=== PATIENT | female | born 1950 | race Caucasian/White ===

== ENCOUNTER 2019-04-02 13:28 | Observation (INO) ==
[2019-04-02 14:51] LABS: Basophils # 0.1 10*3/uL (0.0-0.2); Basophils % 0.9 % (0.0-0.8); Eosinophils # 0.2 10*3/uL (0.0-0.87); Eosinophils % 2.4 % (0.00-10.9); Hematocrit 34.6 VOL% (35.7-47.0); Hemoglobin 11.5 GM/DL (12.0-16.0); Immature Granulocytes % 0.4 %; Immature Granulocytes Absolute 0.03 #; Lymphocytes # 2.3 10*3/uL (1.4-4.0); Lymphocytes % 28.8 % (21.3-54.2); Mean Corpuscular HGB Conc 33.2 GM/DL (32-36); Mean Corpuscular Volume 88.9 FL (87-102); Mean Platelet Volume 10.9 FL (9.6-12.0); Monocytes % 4.9 % (1.7-12.7); Neutrophils % 62.6 % (38.7-73.9); Platelet Count 205 T/CUMM (130-400); Red Blood Count 3.89 MC/CUMM (3.8-5.5); Red Cell Distribution Width 13.8 % (9.3-17.3)
[2019-04-02 15:08] LABS: Apearance,Urine Slightly Hazy (Clear); Bilirubin,Urine Negative (Negative); Blood, Urine Small mg/dL (Negative); Glucose,Urine (UA) >=500 mg/dL (Negative); Ketones,Urine Negative (Negative); Mucus,Urine Occasional /LPF (Occasional); Nitrite,Urine Negative (Negative); Protein,Urine 30 MG/DL; RBC,Urine 1 /HPF (0-4); Squamous Epithelial Cell,Urine Occasional /HPF (0-10); Urine Color Yellow (Yellow); Urine Specific Gravity 1.013 (1.001-1.035); Urine Urobilinogen < 2.0 EU/DL (0.2-1.0); WBC,Urine 1 /HPF (0-6)
[2019-04-02 15:11] LABS: Albumin 3.9 G/DL (3.4-5.0); Bilirubin,Total 0.5 MG/DL (0.2-1.0); Calcium 9.2 MG/DL (8.5-10.1); Osmolality,Calculated 297.7 MOS/KG (273-304); Total Protein 7.8 G/DL (6.4-8.3)
[2019-04-02] MEDS ORDERED: SODIUM CHLORIDE 0.9% 1,000 ML IV STA (15:46)
[2019-04-02] MEDS ORDERED: ZALEPLON 5 MG CAPSULE PO PRN (16:06)
[2019-04-02] MEDS ORDERED: ACETAMINOPHEN 325 MG TABLET PO PRN (16:06)
[2019-04-02] MEDS ORDERED: ONDANSETRON 4 MG/2 ML VIAL IV PRN (16:06)
[2019-04-02] MEDS ORDERED: GLUCAGON 1 MG VIAL IM PRN (16:15)
[2019-04-02] MEDS ORDERED: DEXTROSE 10% 25 GM/250 ML BAG IV PRN (16:15)
[2019-04-02] MEDS: INSULIN NPH/REGULAR 70/30 100 UNIT/ML SUBCUT SCH (16:30)
[2019-04-02] MEDS: INSULIN REGULAR 100 UNIT/ML SUBCUT SCH ×2 (16:30→23:16)
[2019-04-02] MEDS ORDERED: hydrALAZINE 20 MG/1 ML VIAL IV PRN (17:48)
[2019-04-02] MEDS: SODIUM CHLORIDE 0.9% 1,000 ML IV SCH (18:27)
[2019-04-02] MEDS: CARVEDILOL 25 MG TABLET PO SCH (22:10)
[2019-04-02] MEDS: DILTIAZEM 30 MG TABLET PO SCH (22:10)
[2019-04-02] MEDS: MECLIZINE 25 MG TABLET PO SCH (22:10)
[2019-04-03] MEDS: SODIUM CHLORIDE 0.9% 1,000 ML IV SCH ×2 (05:12→12:05)
[2019-04-03 06:34] LABS: Basophils % 0.8 % (0.0-0.8); Eosinophils # 0.2 10*3/uL (0.0-0.87); Eosinophils % 3.5 % (0.00-10.9); Hematocrit 27.5 VOL% (35.7-47.0); Immature Granulocytes % 0.6 %; Immature Granulocytes Absolute 0.03 #; Lymphocytes # 2.4 10*3/uL (1.4-4.0); Lymphocytes % 46.6 % (21.3-54.2); Mean Corpuscular HGB Conc 33.1 GM/DL (32-36); Mean Corpuscular Volume 89.9 FL (87-102); Monocytes % 7.2 % (1.7-12.7); Neutrophils % 41.3 % (38.7-73.9); Red Cell Distribution Width 13.6 % (9.3-17.3)
[2019-04-03 06:36] LABS: Hemoglobin 9.1 GM/DL (12.0-16.0); Red Blood Count 3.06 MC/CUMM (3.8-5.5); White Blood Count 5.1 T/CUMM (4-12)
[2019-04-03 06:37] LABS: Platelet Count 146 T/CUMM (130-400)
[2019-04-03 06:55] LABS: Albumin 2.9 G/DL (3.4-5.0); Bilirubin,Total 0.6 MG/DL (0.2-1.0); Calcium 8.5 MG/DL (8.5-10.1); Osmolality,Calculated 300.8 MOS/KG (273-304); Total Protein 6.1 G/DL (6.4-8.3)
[2019-04-03] MEDS: INSULIN REGULAR 100 UNIT/ML SUBCUT SCH ×4 (09:40→22:11)
[2019-04-03] MEDS: INSULIN NPH/REGULAR 70/30 100 UNIT/ML SUBCUT SCH ×2 (09:40→18:32)
[2019-04-03] MEDS: CARVEDILOL 25 MG TABLET PO SCH ×2 (09:41→18:31)
[2019-04-03] MEDS: PANTOPRAZOLE 40 MG TABLET PO SCH (09:41)
[2019-04-03] MEDS: MECLIZINE 25 MG TABLET PO SCH ×3 (09:41→22:11)
[2019-04-03] MEDS: DILTIAZEM 30 MG TABLET PO SCH ×2 (09:41→22:11)
[2019-04-03] MEDS: MAGNESIUM OXIDE 400 MG TABLET PO SCH (09:42)
[2019-04-04] MEDS: SODIUM CHLORIDE 0.9% 1,000 ML IV SCH ×3 (04:17→17:55)
[2019-04-04 06:43] LABS: Calcium 8.4 MG/DL (8.5-10.1)
[2019-04-04] MEDS: PANTOPRAZOLE 40 MG TABLET PO SCH (09:13)
[2019-04-04] MEDS: MECLIZINE 25 MG TABLET PO SCH ×3 (09:13→20:42)
[2019-04-04] MEDS: CARVEDILOL 25 MG TABLET PO SCH (09:13)
[2019-04-04] MEDS: MAGNESIUM OXIDE 400 MG TABLET PO SCH (09:14)
[2019-04-04] MEDS: INSULIN REGULAR 100 UNIT/ML SUBCUT SCH ×4 (09:14→20:44)
[2019-04-04] MEDS: INSULIN NPH/REGULAR 70/30 100 UNIT/ML SUBCUT SCH ×2 (09:14→16:53)
[2019-04-04] MEDS: DILTIAZEM 30 MG TABLET PO SCH ×2 (09:14→20:42)
[2019-04-04 10:53] LABS: Risk Ratio 3.83; VLDL CHOLESTEROL 30.6 MG/DL
[2019-04-04] MEDS: ASPIRIN EC 81 MG TABLET PO SCH (12:17)
[2019-04-04] MEDS: CARVEDILOL 12.5 MG TABLET PO SCH (20:42)
[2019-04-05] MEDS: SODIUM CHLORIDE 0.9% 1,000 ML IV SCH (00:25)
[2019-04-05 05:46] LABS: Basophils % 0.6 % (0.0-0.8); Eosinophils # 0.2 10*3/uL (0.0-0.87); Hematocrit 27.4 VOL% (35.7-47.0); Hemoglobin 8.7 GM/DL (12.0-16.0); Immature Granulocytes % 0.2 %; Immature Granulocytes Absolute 0.01 #; Lymphocytes # 1.8 10*3/uL (1.4-4.0); Lymphocytes % 37.1 % (21.3-54.2); Mean Corpuscular HGB Conc 31.8 GM/DL (32-36); Mean Corpuscular Volume 92.3 FL (87-102); Mean Platelet Volume 10.7 FL (9.6-12.0); Monocytes % 6.7 % (1.7-12.7); Neutrophils % 52.4 % (38.7-73.9); Platelet Count 133 T/CUMM (130-400); Red Blood Count 2.97 MC/CUMM (3.8-5.5); Red Cell Distribution Width 14.2 % (9.3-17.3)
[2019-04-05 06:05] LABS: Calcium 8.4 MG/DL (8.5-10.1); Osmolality,Calculated 295.6 MOS/KG (273-304)
[2019-04-05] MEDS: INSULIN REGULAR 100 UNIT/ML SUBCUT SCH ×4 (07:51→21:17)
[2019-04-05] MEDS: DILTIAZEM 30 MG TABLET PO SCH (08:57)
[2019-04-05] MEDS: ASPIRIN EC 81 MG TABLET PO SCH (08:57)
[2019-04-05] MEDS: PANTOPRAZOLE 40 MG TABLET PO SCH (08:58)
[2019-04-05] MEDS: INSULIN NPH/REGULAR 70/30 100 UNIT/ML SUBCUT SCH ×2 (08:58→16:18)
[2019-04-05] MEDS: ATORVASTATIN 40 MG TABLET PO SCH (08:58)
[2019-04-05] MEDS: MECLIZINE 25 MG TABLET PO SCH ×3 (08:58→21:16)
[2019-04-05] MEDS: CARVEDILOL 12.5 MG TABLET PO SCH (08:58)
[2019-04-05] MEDS: MAGNESIUM OXIDE 400 MG TABLET PO SCH (08:58)
[2019-04-06 05:39] LABS: Basophils % 0.8 % (0.0-0.8); Eosinophils # 0.2 10*3/uL (0.0-0.87); Eosinophils % 4.2 % (0.00-10.9); Hematocrit 27.1 VOL% (35.7-47.0); Hemoglobin 8.7 GM/DL (12.0-16.0); Immature Granulocytes % 0.3 %; Immature Granulocytes Absolute 0.01 #; Lymphocytes # 1.7 10*3/uL (1.4-4.0); Mean Corpuscular HGB Conc 32.1 GM/DL (32-36); Mean Corpuscular Volume 91.2 FL (87-102); Mean Platelet Volume 10.5 FL (9.6-12.0); Monocytes % 6.8 % (1.7-12.7); Neutrophils % 44.9 % (38.7-73.9); Platelet Count 123 T/CUMM (130-400); Red Blood Count 2.97 MC/CUMM (3.8-5.5); Red Cell Distribution Width 14.1 % (9.3-17.3); White Blood Count 3.8 T/CUMM (4-12)
[2019-04-06 06:05] LABS: Calcium 8.4 MG/DL (8.5-10.1); Osmolality,Calculated 298.6 MOS/KG (273-304)
[2019-04-06] MEDS: ASPIRIN EC 81 MG TABLET PO SCH (09:02)
[2019-04-06] MEDS: ATORVASTATIN 40 MG TABLET PO SCH (09:02)
[2019-04-06] MEDS: MECLIZINE 25 MG TABLET PO SCH (09:02)
[2019-04-06] MEDS: MAGNESIUM OXIDE 400 MG TABLET PO SCH (09:03)
[2019-04-06] MEDS: INSULIN NPH/REGULAR 70/30 100 UNIT/ML SUBCUT SCH (09:03)
[2019-04-06] MEDS: INSULIN REGULAR 100 UNIT/ML SUBCUT SCH ×2 (09:03→12:15)
[2019-04-06] MEDS: PANTOPRAZOLE 40 MG TABLET PO SCH (09:03)
[2019-04-06] MEDS ORDERED: amLODIPine 10 MG TABLET PO SCH (10:30)
[2019-04-06 10:45] VITALS: BP 190/86
[2019-04-06] MEDS ORDERED: hydrALAZINE 25 MG TABLET PO SCH (15:00)
== END 2019-04-06 14:47 | disposition home or self-care (01) ==
LOC: N.ED 13:28 → N.EDINP 13:28 → SUATTDRO 16:06 → N.5E 16:39
PROVIDERS: ADMIT Internal Medicine; ATTEND Family Medicine

== ENCOUNTER 2020-06-27 00:55 | Inpatient (IN) ==
[2020-06-27] MEDS ORDERED: GLUCAGON 1 MG VIAL IM PRN ×2 (05:09→10:06)
[2020-06-27] MEDS ORDERED: DEXTROSE 50% 25 GM/50 ML VIAL IV PRN ×2 (05:09→10:06)
[2020-06-27 05:42] LABS: Basophils % 0.4 % (0.0-0.8); Eosinophils # 0.1 10*3/uL (0.0-0.87); Eosinophils % 1.6 % (0.00-10.9); Hematocrit 30.6 VOL% (35.7-47.0); Hemoglobin 10.3 GM/DL (12.0-16.0); Immature Granulocytes % 0.3 %; Immature Granulocytes Absolute 0.02 #; Lymphocytes # 1.4 10*3/uL (1.4-4.0); Lymphocytes % 20.3 % (21.3-54.2); Mean Corpuscular HGB Conc 33.7 GM/DL (32-36); Mean Corpuscular Volume 89.7 FL (87-102); Mean Platelet Volume 10.1 FL (9.6-12.0); Monocytes % 4.9 % (1.7-12.7); Neutrophils % 72.5 % (38.7-73.9); Platelet Count 184 T/CUMM (130-400); Red Blood Count 3.41 MC/CUMM (3.8-5.5); Red Cell Distribution Width 13.3 % (9.3-17.3); White Blood Count 6.9 T/CUMM (4-12)
[2020-06-27 06:06] LABS: Albumin 3.6 G/DL (3.4-5.0); Bilirubin,Total 0.5 MG/DL (0.2-1.0); Calcium 9.5 MG/DL (8.5-10.1); Osmolality,Calculated 287.7 MOS/KG (273-304); Total Protein 7.1 G/DL (6.4-8.3)
[2020-06-27] MEDS ORDERED: SODIUM CHLORIDE 0.9% 1,000 ML IV SCH (06:30)
[2020-06-27] MEDS: INSULIN LISPRO 100 UNIT/ML SUBCUT SCH ×3 (07:06→17:14)
[2020-06-27 07:24] LABS: Bacteria,Urine Occasional /HPF (Few); Bilirubin,Urine Negative (Negative); Blood, Urine Small mg/dL (Negative); Glucose,Urine (UA) 150 mg/dL (Negative); Hyaline Casts,Urine 1 /LPF (0-3); Ketones,Urine 5 mg/dL (Negative); Mucus,Urine Occasional /LPF (Occasional); Nitrite,Urine Negative (Negative); Protein,Urine 30 MG/DL; RBC,Urine 2 /HPF (0-4); Squamous Epithelial Cell,Urine Occasional /HPF (0-10); Urine Appearance CLEAR (Clear); Urine Color Yellow (Yellow); Urine Specific Gravity 1.013 (1.001-1.035); Urine Urobilinogen < 2.0 EU/DL (0.2-1.0); WBC,Urine 10 /HPF (0-6)
[2020-06-27] MEDS: ASPIRIN EC 81 MG TABLET PO SCH (09:32)
[2020-06-27] MEDS ORDERED: amLODIPine 10 MG TABLET PO SCH (11:07)
[2020-06-27] MEDS ORDERED: ATORVASTATIN 40 MG TABLET PO SCH (11:07)
[2020-06-27] MEDS ORDERED: ceFAZolin 1,000 MG VIAL IRRIG ONE (11:28)
[2020-06-27] MEDS ORDERED: ceFAZolin 1,000 MG in SYRINGE 1 EACH IV ONE (11:28)
[2020-06-27] MEDS: ATORVASTATIN 40 MG TABLET PO SCH (11:49)
[2020-06-27] MEDS: amLODIPine 10 MG TABLET PO SCH (11:49)
[2020-06-27] MEDS: INSULIN NPH/REGULAR 70/30 100 UNIT/ML SUBCUT SCH (16:12)
[2020-06-27] MEDS: hydrALAZINE 25 MG TABLET PO SCH (16:12)
[2020-06-28] MEDS: hydrALAZINE 25 MG TABLET PO SCH ×4 (00:33→21:20)
[2020-06-28] MEDS: INSULIN LISPRO 100 UNIT/ML SUBCUT SCH ×4 (00:34→18:18)
[2020-06-28 05:18] LABS: Basophils # 0.1 10*3/uL (0.0-0.2); Basophils % 0.8 % (0.0-0.8); Eosinophils # 0.4 10*3/uL (0.0-0.87); Hematocrit 30.1 VOL% (35.7-47.0); Hemoglobin 9.9 GM/DL (12.0-16.0); Immature Granulocytes % 0.2 %; Immature Granulocytes Absolute 0.01 #; Lymphocytes # 2.4 10*3/uL (1.4-4.0); Lymphocytes % 40.4 % (21.3-54.2); Mean Corpuscular HGB Conc 32.9 GM/DL (32-36); Mean Corpuscular Volume 92.6 FL (87-102); Mean Platelet Volume 10.6 FL (9.6-12.0); Monocytes % 7.5 % (1.7-12.7); Neutrophils % 45.1 % (38.7-73.9); Platelet Count 174 T/CUMM (130-400); Red Blood Count 3.25 MC/CUMM (3.8-5.5); Red Cell Distribution Width 13.2 % (9.3-17.3)
[2020-06-28 05:39] LABS: Osmolality,Calculated 291.1 MOS/KG (273-304)
[2020-06-28] MEDS ORDERED: amLODIPine 10 MG TABLET PO SCH (09:00)
[2020-06-28] MEDS ORDERED: ATORVASTATIN 40 MG TABLET PO SCH (09:00)
[2020-06-28] MEDS ORDERED: ceFAZolin 1,000 MG in SYRINGE 1 EACH IV ONE (09:30)
[2020-06-28] MEDS ORDERED: ceFAZolin 1,000 MG VIAL ONE ×2 (09:34)
[2020-06-28] MEDS ORDERED: LIDOCAINE 1%/EPI INJ 20 ML VIAL ONE (09:53)
[2020-06-28] MEDS ORDERED: HYDROmorphone 2 MG/1 ML VIAL ONE (09:56)
[2020-06-28] MEDS ORDERED: MIDAZOLAM 2 MG/2 ML VIAL ONE (09:56)
[2020-06-28] MEDS ORDERED: TISSUE ADHESIVE 1 EACH APPLICATOR TOP ONE (10:49)
[2020-06-28] MEDS: INSULIN NPH/REGULAR 70/30 100 UNIT/ML SUBCUT SCH ×2 (11:47→16:32)
[2020-06-28] MEDS: ASPIRIN EC 81 MG TABLET PO SCH (12:15)
[2020-06-28] MEDS: ATORVASTATIN 40 MG TABLET PO SCH (12:16)
[2020-06-28] MEDS: amLODIPine 10 MG TABLET PO SCH (12:16)
[2020-06-28] MEDS: MAGNESIUM OXIDE 400 MG TABLET PO SCH (12:16)
[2020-06-28] MEDS ORDERED: SODIUM CHLORIDE 0.45% 1,000 ML IV SCH (14:30)
[2020-06-29] MEDS: INSULIN LISPRO 100 UNIT/ML SUBCUT SCH ×3 (01:10→11:48)
[2020-06-29 05:29] LABS: Basophils # 0.1 10*3/uL (0.0-0.2); Basophils % 0.8 % (0.0-0.8); Eosinophils # 0.3 10*3/uL (0.0-0.87); Eosinophils % 5.3 % (0.00-10.9); Hematocrit 28.3 VOL% (35.7-47.0); Hemoglobin 9.5 GM/DL (12.0-16.0); Immature Granulocytes % 0.2 %; Immature Granulocytes Absolute 0.01 #; Lymphocytes # 2.2 10*3/uL (1.4-4.0); Lymphocytes % 34.9 % (21.3-54.2); Mean Corpuscular HGB Conc 33.6 GM/DL (32-36); Mean Corpuscular Volume 90.7 FL (87-102); Mean Platelet Volume 10.2 FL (9.6-12.0); Monocytes % 8.1 % (1.7-12.7); Neutrophils % 50.7 % (38.7-73.9); Platelet Count 151 T/CUMM (130-400); Red Blood Count 3.12 MC/CUMM (3.8-5.5); Red Cell Distribution Width 13.5 % (9.3-17.3); White Blood Count 6.2 T/CUMM (4-12)
[2020-06-29 05:48] LABS: Calcium 8.7 MG/DL (8.5-10.1); Osmolality,Calculated 288.3 MOS/KG (273-304)
[2020-06-29] MEDS: MAGNESIUM OXIDE 400 MG TABLET PO SCH (08:39)
[2020-06-29] MEDS: ASPIRIN EC 81 MG TABLET PO SCH (08:39)
[2020-06-29] MEDS: amLODIPine 10 MG TABLET PO SCH (08:40)
[2020-06-29] MEDS: ATORVASTATIN 40 MG TABLET PO SCH (08:40)
[2020-06-29] MEDS: hydrALAZINE 25 MG TABLET PO SCH (08:40)
[2020-06-29] MEDS: INSULIN NPH/REGULAR 70/30 100 UNIT/ML SUBCUT SCH (08:42)
[2020-06-29 12:35] VITALS: BP 131/61
== END 2020-06-29 14:57 | disposition home or self-care (01) | DRG 243 ==
LOC: N.ED 00:55 → N.EDINP 00:55 → SUATTDRO 03:52 → N.ICU 05:06 → N.TELES 15:11
PROVIDERS: ADMIT Internal Medicine; ATTEND Internal Medicine